=== PATIENT | male | born 2000 | race Two or more races ===

== ENCOUNTER 2023-08-10 19:04 | Emergency (ER) | payer OTHER ==
[~2023-08-10] VITALS: Ht 172.7 cm; Wt 106.8 kg
[2023-08-10 19:36] VITALS: BP 137/87; PULSE 100; RESP 16; O2SAT 97
== END 2023-08-11 00:28 | disposition left against medical advice (07) ==
LOC: ER 19:04
DX: L02.214 Cutaneous abscess of groin (principal); Z53.21 Procedure and treatment not carried out due to patient leaving prior to being seen by health care provider